=== PATIENT | male | born 1950 | race Caucasian/White ===

== ENCOUNTER 2025-04-04 14:24 | Inpatient (IN) | payer MEDICARE, OTHER ==
[~2025-04-04] VITALS: Ht 190.5 cm; Wt 53.1 kg
[2025-04-04] MEDS ORDERED: ZOLPIDEM TARTRATE 10 MG TABLET PO PRN (15:00)
[2025-04-04] MEDS ORDERED: MAGNESIUM HYDROXIDE SUSPENSION 30 ML UDCUP PO PRN (16:15)
[2025-04-04] MEDS ORDERED: DEXTROSE 50%-WATER 25 GM/50 ML SYRINGE IVP PRN (16:15)
[2025-04-04] MEDS ORDERED: ONDANSETRON HCL 4 MG/2 ML VIAL IVP PRN (16:15)
[2025-04-04] MEDS ORDERED: ZOLPIDEM TARTRATE 5 MG TABLET PO PRN (16:15)
[2025-04-04] MEDS ORDERED: METHADONE HCL 10 MG TABLET PO SCH (17:00)
[2025-04-04 17:51] LABS: BASOPHILS % (AUTO) 0.5 % (0.0-2.0); EOSINOPHILS % (AUTO) 2.1 % (1.0-6.0); HEMATOCRIT 28.8 % (41-53); HEMOGLOBIN 9.3 g/dL (13.5-17.5); LYMPHOCYTES # (AUTO) 1.1 K/uL (1.0-4.8); LYMPHOCYTES % (AUTO) 16.8 % (22.0-44.0); MEAN CORPUSCULAR HEMOGLOBIN 26.4 pg (26.0-34.0); MEAN CORPUSCULAR HGB CONC 32.4 G/dL (31.0-37.0); MEAN CORPUSCULAR VOLUME 82 fL (80-100); MONOCYTES # (AUTO) 0.6 K/uL (0.1-1.0); MONOCYTES % (AUTO) 9.8 % (2.0-9.0); NEUTROPHILS # (AUTO) 4.7 K/uL (1.8-7.7); NEUTROPHILS % (AUTO) 70.8 % (40.0-70.0); PLATELET COUNT (AUTO) 215 K/uL (150-450); RED BLOOD CELL COUNT(AUTO) 3.54 MIL/uL (4.50-5.90); WHITE BLOOD COUNT (AUTO) 6.6 K/uL (4.5-11.0)
[2025-04-04 17:55] LABS: APPEARANCE,URINE CLEAR (CLEAR); BILIRUBIN,URINE NEGATIVE (NEGATIVE); COLOR,URINE LIGHT YELLOW (YELLOW); GLUCOSE, URINE (UA) NEGATIVE (NEGATIVE); KETONES,URINE NEGATIVE (NEGATIVE); LEUKOCYTE ESTERASE ,URINE NEGATIVE (NEGATIVE); NITRATE,URINE NEGATIVE (NEGATIVE); OCCULT BLOOD,URINE NEGATIVE (NEGATIVE); PH,URINE 5.5 (5.0-8.0); PH,URINE DRUG SCREEN 5.5 (5.0-8.0); PROTEIN,URINE NEGATIVE (NEGATIVE); UROBILINOGEN,URINE <=1.0 mg/dL (<=1.0)
[2025-04-04] MEDS: METHADONE HCL 10 MG/5 ML SOLUTION ORAL.SYG PO SCH (17:55)
[2025-04-04 17:58] LABS: ANION GAP 4 mmol/L (8-16); CARBON DIOXIDE 30 mmol/L (22-29); CHLORIDE 102 mmol/L (98-107); CREATININE 1.21 mg/dL (0.60-1.30); GLOMERULAR FILTR. RATE CALC 59 mL/min (>60); GLUCOSE,RANDOM 134 mg/dL (70-110); POTASSIUM 4.4 mmol/L (3.5-5.1); SODIUM SERUM 136 mmol/L (136-145); UREA NITROGEN, BLOOD 30 mg/dL (7-18)
[2025-04-04 18:02] LABS: ALCOHOL, URINE DRUG SCREEN NEGATIVE (NEGATIVE); AMPHET/METH SCREEN,URINE NEGATIVE (NEGATIVE); BARBITURATE SCREEN, URINE NEGATIVE (NEGATIVE); BENZODIAZEPINES SCREEN,URINE NEGATIVE (NEGATIVE); CANNABINOID SCREEN,URINE NEGATIVE (NEGATIVE); COCAINE SCREEN,URINE NEGATIVE (NEGATIVE); METHADONE SCREEN, URINE POSITIVE (NEGATIVE); OPIATE SCREEN,URINE NEGATIVE (NEGATIVE); PHENCYCLIDINE SCREEN,URINE NEGATIVE (NEGATIVE)
[2025-04-04 18:07] LABS: RBC,URINE 0-2 /HPF (0-2); WBC,URINE 0-2 /HPF (0-5)
[2025-04-04 18:08] LABS: BACTERIA,URINE Rare /HPF (None Seen); SQUAMOUS EPITHELIAL CELL,UR Few /LPF (None Seen)
[2025-04-04 18:08] LABS: TROPONIN I-HIGH SENSITIVITY 12 ng/L (<76)
[2025-04-04 19:36] LABS: GLUCOMETER DEV NAME(LOC) ERT.7; GLUCOSE,POINT OF CARE 116 MG/DL (70-110)
[2025-04-04] MEDS: DOCUSATE SODIUM 100 MG CAPSULE PO SCH (20:16)
[2025-04-04] MEDS: LORazepam 2 MG TABLET PO PRN (20:16)
[2025-04-04] MEDS: DiphenhydrAMINE HCL 50 MG/ML VIAL IM ONE (21:25)
[2025-04-04] MEDS: haloperidoL LACTATE 5 MG/ML VIAL IM ONE (21:25)
[2025-04-04] MEDS: LORazepam 2 MG/ML VIAL IM ONE (21:25)
[2025-04-04 22:10] VITALS: BP 147/66; PULSE 78; RESP 20; TEMP 98.2; O2SAT 96
[2025-04-05] MEDS: HEPARIN SODIUM,PORCINE 5,000 UNITS/ML VIAL SQ SCH (00:37)
[2025-04-05] MEDS: haloperidoL 5 MG TABLET PO PRN (01:44)
[2025-04-05 03:42] VITALS: BP 154/101; PULSE 106; RESP 20; TEMP 98.6; O2SAT 96
[2025-04-05] MEDS: INSULIN LISPRO 100 UNITS/ML SQ PRN (06:25)
[2025-04-05 06:35] LABS: GLUCOMETER DEV NAME(LOC) 6S.2; GLUCOSE,POINT OF CARE 146 MG/DL (70-110)
[2025-04-05 08:02] VITALS: BP 138/73; PULSE 62; RESP 18; TEMP 97.9; O2SAT 98
[2025-04-05 08:11] LABS: GLUCOMETER DEV NAME(LOC) 6N.2B; GLUCOSE,POINT OF CARE 143 MG/DL (70-110)
[2025-04-05] MEDS: ASPIRIN 81 MG CHEWABLE TABLET PO SCH (08:41)
[2025-04-05] MEDS: ATORVASTATIN CALCIUM 20 MG TABLET PO SCH (08:41)
[2025-04-05] MEDS: FAMOTIDINE 20 MG TABLET PO SCH (08:41)
[2025-04-05] MEDS: MULTIVITAMINS WITH MINERALS, THERAPEUTIC TABLET PO SCH (09:00)
[2025-04-05 12:48] VITALS: BP 172/62; RESP 18; O2SAT 99
[2025-04-05] MEDS ORDERED: GABA-529 PO (14:02)
[2025-04-05] MEDS ORDERED: DIVA125T32 PO (14:02)
[2025-04-05] MEDS ORDERED: BUSP10TA23 PO (14:02)
[2025-04-05] MEDS ORDERED: QUET100T34 PO (14:02)
[2025-04-05] MEDS ORDERED: DULO60CA98 PO (14:02)
[2025-04-05] MEDS: METHADONE HCL 10 MG/5 ML SOLUTION ORAL.SYG PO SCH (15:07)
[2025-04-05 15:19] VITALS: BP 175/89; PULSE 108; RESP 18; TEMP 98; O2SAT 98
[2025-04-05] MEDS: BusPIRone HCL 10 MG TABLET PO SCH (16:20)
[2025-04-05 19:52] VITALS: BP 155/91; PULSE 105; RESP 19; TEMP 97.7; O2SAT 99
[2025-04-05] MEDS: DIVALPROEX SODIUM 125 MG DR TABLET PO SCH (20:23)
[2025-04-05] MEDS: QUEtiapine FUMARATE 100 MG TABLET PO SCH (20:23)
[2025-04-05] MEDS ORDERED: METHADONE HCL 10 MG/5 ML SOLUTION ORAL.SYG PO SCH (21:00)
[2025-04-05 23:08] VITALS: BP 159/55; PULSE 89; RESP 20; TEMP 97.9; O2SAT 98
[2025-04-06 03:53] VITALS: BP 160/79; PULSE 99; RESP 20; TEMP 97.9; O2SAT 96
[2025-04-06 07:57] VITALS: BP 148/76; PULSE 91; RESP 20; TEMP 97.9; O2SAT 98
[2025-04-06 08:25] LABS: GLUCOMETER DEV NAME(LOC) 6N.2B; GLUCOSE,POINT OF CARE 109 MG/DL (70-110)
[2025-04-06] MEDS: DULoxetine HCL 60 MG CAPSULE PO SCH (09:12)
[2025-04-06 12:14] LABS: BASOPHILS % (AUTO) 0.6 % (0.0-2.0); EOSINOPHILS % (AUTO) 2.1 % (1.0-6.0); HEMATOCRIT 30.4 % (41-53); LYMPHOCYTES # (AUTO) 0.9 K/uL (1.0-4.8); LYMPHOCYTES % (AUTO) 11.3 % (22.0-44.0); MEAN CORPUSCULAR HEMOGLOBIN 26.8 pg (26.0-34.0); MEAN CORPUSCULAR VOLUME 81 fL (80-100); MONOCYTES # (AUTO) 0.6 K/uL (0.1-1.0); MONOCYTES % (AUTO) 7.4 % (2.0-9.0); NEUTROPHILS # (AUTO) 6.1 K/uL (1.8-7.7); NEUTROPHILS % (AUTO) 78.6 % (40.0-70.0); PLATELET COUNT (AUTO) 207 K/uL (150-450); RED BLOOD CELL COUNT(AUTO) 3.74 MIL/uL (4.50-5.90); RED CELL DISTRIBUTION WIDTH 20.2 % (11.5-14.5); WHITE BLOOD COUNT (AUTO) 7.7 K/uL (4.5-11.0)
[2025-04-06 12:20] LABS: CALCIUM, TOTAL 8.9 mg/dL (8.8-10.5); CREATININE 1.3 mg/dL (0.60-1.30); POTASSIUM 4.3 mmol/L (3.5-5.1)
[2025-04-06 13:43] LABS: ERYTHROCYTE SEDIMENTATION RATE 62 MM/HR (0-20)
[2025-04-06 14:00] VITALS: BP 146/76; PULSE 84; RESP 28; TEMP 98.1; O2SAT 98
[2025-04-06 18:24] VITALS: BP 153/69; PULSE 76; RESP 14; TEMP 97.5; O2SAT 97
[2025-04-06 18:41] LABS: GLUCOMETER DEV NAME(LOC) 6S.1D; GLUCOSE,POINT OF CARE 221 MG/DL (70-110)
[2025-04-06 18:41] LABS: GLUCOMETER DEV NAME(LOC) 6S.1D; GLUCOSE,POINT OF CARE 155 MG/DL (70-110)
[2025-04-06 19:30] VITALS: BP 146/61; PULSE 92; RESP 20; TEMP 98.6; O2SAT 98
[2025-04-07 01:21] LABS: GLUCOMETER DEV NAME(LOC) 6N.2B; GLUCOSE,POINT OF CARE 145 MG/DL (70-110)
[2025-04-07 01:21] LABS: GLUCOMETER DEV NAME(LOC) 6N.2B; GLUCOSE,POINT OF CARE 122 MG/DL (70-110)
[2025-04-07 03:45] VITALS: BP 138/84; PULSE 60; RESP 18; TEMP 98.1; O2SAT 95
[2025-04-07] MEDS: GABAPENTIN 100 MG CAPSULE PO PRN (04:48)
[2025-04-07 06:40] LABS: GLUCOMETER DEV NAME(LOC) 6S.1D; GLUCOSE,POINT OF CARE 137 MG/DL (70-110)
[2025-04-07 08:00] VITALS: BP 156/100; PULSE 98; RESP 18; TEMP 97.9; O2SAT 98
[2025-04-07] MEDS: ACETAMINOPHEN 325 MG TABLET PO PRN (08:16)
[2025-04-07] MEDS ORDERED: GADOTERATE MEGLUMINE 10 MMOL/20 ML VIAL IVP ONE (12:24)
[2025-04-07] MEDS ORDERED: DiphenhydrAMINE HCL 50 MG/ML VIAL ONE (12:35)
[2025-04-07] MEDS: DiphenhydrAMINE HCL 50 MG/ML VIAL IM ONE (12:46)
[2025-04-07] MEDS: METHADONE HCL 10 MG TABLET PO SCH (13:26)
[2025-04-07 15:00] VITALS: BP 141/63; PULSE 96; RESP 18; TEMP 98.1; O2SAT 97
[2025-04-07 20:00] VITALS: BP 134/78; PULSE 99; RESP 20; TEMP 97.5; O2SAT 100
[2025-04-08 00:46] LABS: GLUCOMETER DEV NAME(LOC) 6N.2B; GLUCOSE,POINT OF CARE 134 MG/DL (70-110)
[2025-04-08 04:30] VITALS: BP 146/96; PULSE 106; RESP 20; TEMP 97.9; O2SAT 94
[2025-04-08 07:45] VITALS: BP 136/73; PULSE 91; RESP 20; TEMP 98.6; O2SAT 96
[2025-04-08 08:21] LABS: GLUCOMETER DEV NAME(LOC) 6N.2B; GLUCOSE,POINT OF CARE 129 MG/DL (70-110)
[2025-04-09 09:35] LABS: CANDIDA AURIS PCR,SURVEILLANCE Not Detected C(t) (Not Detectd)
== END 2025-04-08 15:26 | DRG 639 ==
LOC: EMS 14:28 → EDH 16:09 → 6S 21:47
PROVIDERS: ADMIT Internal Medicine; ATTEND Internal Medicine
PROC: GZ56ZZZ Individual Psychotherapy, Supportive (ICD-10-PCS; principal; 2025-04-05)
DX: E11.621 Type 2 diabetes mellitus with foot ulcer (principal); E11.51 Type 2 diabetes mellitus with diabetic peripheral angiopathy without gangrene; E11.40 Type 2 diabetes mellitus with diabetic neuropathy, unspecified; G89.4 Chronic pain syndrome; D63.8 Anemia in other chronic diseases classified elsewhere; K43.9 Ventral hernia without obstruction or gangrene; F25.0 Schizoaffective disorder, bipolar type; F41.9 Anxiety disorder, unspecified; G47.00 Insomnia, unspecified; L97.529 Non-pressure chronic ulcer of other part of left foot with unspecified severity; L97.519 Non-pressure chronic ulcer of other part of right foot with unspecified severity; Z79.82 Long term (current) use of aspirin; Z79.899 Other long term (current) drug therapy; Z83.3 Family history of diabetes mellitus
CPT/HCPCS: 80048; 80307; 81001; 82962; 84484; 85025; 85651; 86140; 87081; 87481; 92526; 92610; 99285; G0480; J1200; J1630; J1644; J2060